=== PATIENT | female | born 1945 | race Caucasian/White ===

== ENCOUNTER → 2016-09-29 | Outpatient (CLI) | payer MEDICARE, OTHER | LOC: RAD 12:47 | PROVIDERS: ATTEND Specialist | DX: C50.919 Malignant neoplasm of unspecified site of unspecified female breast (principal) | CPT/HCPCS: 78815; A9552 ==

== ENCOUNTER → 2017-06-03 | Outpatient (CLI) | payer MEDICARE, OTHER ==
--- NOTE | 2017-06-04 08:56 | RADIOLOGY REPORT (SQ) ---
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 TECHNIQUE: Blood glucose level was verified. Above dose of FDG was injected intravenously. 2-D seg mented attenuation correction images were obtained from the base of the skull to the midthighs. Nonc ontrast CT images were obtained for attenuation correction and fusion with emission images. CT image s were performed without oral or intravenous contrast and are not sensitive for parenchymal lesions. A series of overlapping emission PET images were obtained. Images reviewed and manipulated at [facility] work station by the radiologist. Images stored on PACS. LIMITATIONS: Artifact from left humeral orthopedic instrumentation. FINDINGS: HEAD AND NECK: No areas of abnormal metabolic activity in the soft tissues of the head and neck. CHEST: No areas of abnormal metabolic activity in the chest. ABDOMEN AND PELVIS: No areas of abnormal metabolic activity in the abdomen or pelvis. Expected physi ologic activity is present in the genitourinary system and bowel. PROXIMAL LOWER EXTREMITIES: No areas of abnormal metabolic activity in the soft tissues of the lower extremities. BONES: Mixed sclerotic lytic lesions throughout the skeleton with minimal activity on PET. ADDITIONAL CT FINDINGS: No significant change. OTHER: Left-sided port with tip in the right atrium. IMPRESSION: Stable bone metastasis. No noticeable progression or soft tissue metastasis. TECHNICAL DOCUMENTATION: JOB ID: [id number] [employer]- All Rights Reserved
== END ==
LOC: RAD 14:37
PROVIDERS: ATTEND Internal Medicine Hematology & Oncology
DX: C50.411 Malignant neoplasm of upper-outer quadrant of right female breast (principal)
CPT/HCPCS: 78815; A9552

== ENCOUNTER → 2018-07-14 | Outpatient (CLI) | payer MEDICARE, OTHER ==
--- NOTE | 2018-07-15 09:51 | RADIOLOGY REPORT (SQ) ---
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 TECHNIQUE: Blood glucose level was verified. Above dose of FDG was injected intravenously. 2-D seg mented attenuation correction images were obtained from the base of the skull to the midthighs. Nonc ontrast CT images were obtained for attenuation correction and fusion with emission images. CT image s were performed without oral or intravenous contrast and are not sensitive for parenchymal lesions. A series of overlapping emission PET images were obtained. Images reviewed and manipulated at [facility] work station by the radiologist. Images stored on PACS. LIMITATIONS: None. FINDINGS: HEAD AND NECK: No areas of abnormal metabolic activity in the soft tissues of the head and neck. CHEST: No areas of abnormal metabolic activity in the chest. ABDOMEN AND PELVIS: No areas of abnormal metabolic activity in the abdomen or pelvis. Expected physi ologic activity is present in the genitourinary system and bowel. PROXIMAL LOWER EXTREMITIES: No areas of abnormal metabolic activity in the soft tissues of the lower extremities. BONES: Mixed sclerotic and lytic lesions throughout the skeleton with mildly increased metabolic acti vity up to 2.[address] FINDINGS: Stable skeletal metastasis. Basilar atelectasis. Hiatal hernia. Left-sided port tip in the right atrium. OTHER: No other significant findings. IMPRESSION: Stable bone metastasis. No soft tissue metastasis. TECHNICAL DOCUMENTATION: JOB ID: [id number]- All Rights Reserved Reading location - IP/workstation name: [email or web address]
== END ==
LOC: RAD 16:15
PROVIDERS: ATTEND Physician Assistant Medical
DX: C50.411 Malignant neoplasm of upper-outer quadrant of right female breast (principal)
CPT/HCPCS: 78815; A9552

== ENCOUNTER 2018-11-07 07:26 | Day surgery (SDC) | payer MEDICARE, OTHER ==
[~2018-11-07 07:26] MED LIST: KETOROLAC TROMETHAMINE 0.45% 4 DROP/0.4 ML DROPERETTE OS PRN; MIDAZOLAM 2 MG/2 ML INJ ONE
[2018-11-07] MEDS: TETRACAINE HCL 0.5% OPH SOLN 4 ML ONE ×3 (08:28→08:55)
[2018-11-07] MEDS: CYCLOPENTOLATE 0.2%/PHENYLEPHRINE 1% OPH SOLN 2 ML OS PRN ×3 (08:29→08:50)
[2018-11-07] MEDS: BESIFLOXACIN HCL 0.6% OPH SUSP 5 ML BOTTLE OS PRN ×4 (08:29→09:21)
[2018-11-07] MEDS: TROPICAMIDE 1% OPH SOLN 3 ML OS PRN ×3 (08:29→08:50)
[2018-11-07] MEDS: EPINEPHRINE INJ/PF 1 MG/1 ML AMPULE ONE ×2 (09:08)
[2018-11-07] MEDS: CHONDR SU A NA/HYALUR INTRAOC KIT (SURGICARE) ONE ×2 (09:08)
[2018-11-07] MEDS: LIDOCAINE 1%/PHENYLEPHRINE 1.5% 1 ML VIAL ONE ×2 (09:09)
[2018-11-07] MEDS: DORZOLAMIDE HCL 2%/TIMOLOL MALEAT 0.5% OPH SOLN 10 ML OS PRN ×2 (09:21)
--- NOTE | 2018-11-07 17:24 | [facility] DISCHARGE SUMMARY E ---
[facility] Discharge Summary NAME: STEVE SOMMERS AGE: 72Y ADMITTED: 11/07/2018 DISCHARGED: A 72-year-old patient who underwent cataract extraction with toric IOL of the left eye. DIAGNOSIS: Cataract left eye. She underwent surgery because she was having difficulty seeing medicine bottles. She should be on a regular diet. No bending at the waist and no heavy lifting. She should use her Besivance, Ilevro, and Durezol at 3:00 p.m. and 8:00 p.m. and sleep with a rigid shield. I will see her for her 1-day postop tomorrow. DICTATING PHYSICIAN: JENY TORIBIO M.D. [id number] PHY#: [id number] ID: [id number] JOB#: [id number] ACCT: [id number] cc:JENY TORIBIO M.D. >
--- NOTE | 2018-11-07 17:24 | [facility] OPERATIVE REPORT E ---
[facility] Operative Report NAME: STEVE SOMMERS AGE: 72Y DATE OF SURGERY: 11/07/2018 ROOM: PREOPERATIVE DIAGNOSIS: CATARACT LEFT EYE. POSTOPERATIVE DIAGNOSIS: CATARACT LEFT EYE. OPERATION: Cataract extraction with intraocular lens implant of the left eye with a toric multifocal lens. SURGEON: JENY TORIBIO M.D. ANESTHESIA: Topical. COMPLICATIONS: None. ESTIMATED BLOOD LOSS: None. PROCEDURE: After appropriate consent was obtained and calculations made, the patient was brought back to the operating room where the patient was prepped and draped in sterile fashion. A lid speculum was placed and attention was directed to a paracentesis where a paracentesis blade made a small incision. Viscoelastic was then used to inflate the anterior chamber. Next a 2.4 mm incision was made with the paracentesis blade. A continuous capsulorhexis forceps of approximately 5 mm was done using a cystitome and capsulorhexis forceps. Hydrodissection was carried out to make the lens freely mobile and then a divide and conquer technique was used to remove the lens with a CDE of approximately 9.09. Following this, the remaining cortical material was removed with irrigation/aspiration. After this the patient was then again marked. The marking procedure started in the preoperative holding area where 180 and 0 was marked with a marker. Now that the patient was in the operating room a 360-degree marker was used to keisha the axis at approximately 110 degrees and a toric lens of 23.5 diopters [id number] was injected into the bag after filling with viscoelastic and rotating to approximately 165 degrees. The I/A was used to remove the viscoelastic material and the toric lens appeared to be appropriately aligned. Besivance and Cosopt were instilled in the eye. A rigid sheild was placed. The patient returned to postoperative recovery in stable condition. DICTATING PHYSICIAN: JENY TORIBIO M.D. [id number] PHY#: [id number] ID: [id number] JOB#: [id number] ACCT: [id number] cc:JENY TORIBIO M.D. > MTDD
[2018-11-08] MEDS ORDERED: TETRACAINE HCL 0.5% OPH SOLN 0.6 ML DROPERETTE OS PRN (05:00)
== END 2018-11-07 10:01 | disposition home or self-care (01) ==
LOC: SC 07:26
PROVIDERS: ATTEND Internal Medicine
PROC: 08RK3JZ Replacement of Left Lens with Synthetic Substitute, Percutaneous Approach (ICD-10-PCS; principal; 2018-11-07 09:00)
DX: H25.12 Age-related nuclear cataract, left eye (principal); H25.11 Age-related nuclear cataract, right eye; H43.813 Vitreous degeneration, bilateral; H04.123 Dry eye syndrome of bilateral lacrimal glands; Z85.3 Personal history of malignant neoplasm of breast
CPT/HCPCS: 00142; 66983; V2787; J2250; J3490 ×2; J0171; J2370; 142

== ENCOUNTER 2018-12-05 09:02 | Day surgery (SDC) | payer MEDICARE, OTHER ==
[~2018-12-05 09:02] MED LIST changes: +KETOROLAC TROMETHAMINE 0.45% 4 DROP/0.4 ML DROPERETTE OD PRN; -KETOROLAC TROMETHAMINE 0.45% 4 DROP/0.4 ML DROPERETTE OS PRN
[2018-12-05] MEDS: TROPICAMIDE 1% OPH SOLN 3 ML OD PRN ×3 (10:00→10:22)
[2018-12-05] MEDS: CYCLOPENTOLATE 0.2%/PHENYLEPHRINE 1% OPH SOLN 2 ML OD PRN ×3 (10:00→10:22)
[2018-12-05] MEDS: TETRACAINE HCL 0.5% OPH SOLN 4 ML OD PRN ×4 (10:00→10:34)
[2018-12-05] MEDS: BESIFLOXACIN HCL 0.6% OPH SUSP 5 ML BOTTLE OD PRN ×4 (10:00→10:56)
[2018-12-05] MEDS: LIDOCAINE 1%/PHENYLEPHRINE 1.5% 1 ML VIAL ONE ×2 (10:47)
[2018-12-05] MEDS: EPINEPHRINE INJ/PF 1 MG/1 ML AMPULE ONE ×2 (10:47)
[2018-12-05] MEDS: CHONDR SU A NA/HYALUR INTRAOC KIT (SURGICARE) ONE ×2 (10:47)
[2018-12-05] MEDS: DORZOLAMIDE HCL 2%/TIMOLOL MALEAT 0.5% OPH SOLN 10 ML OD PRN ×2 (10:56)
--- NOTE | 2018-12-05 19:25 | [facility] OPERATIVE REPORT E ---
[facility] Operative Report NAME: STEVE SOMMERS AGE: 72Y DATE OF SURGERY: 12/05/2018 ROOM: PREOPERATIVE DIAGNOSIS: CATARACT, RIGHT EYE. POSTOPERATIVE DIAGNOSIS: CATARACT, RIGHT EYE. OPERATION: Cataract extraction with insertion of an IOL of the right eye. SURGEON: JENY TORIBIO M.D. ANESTHESIA: Topical. PROCEDURE: After obtaining appropriate consent, the patient's right eye was prepped and draped in sterile fashion as well as the surgeon in a sterile manner and cataract surgery was started. First a paracentesis blade was used to make a side-port incision. Viscoelastic was used to inflate the anterior chamber. Next a 2.4 mm incision was made with a 2.4 mm blade, clear corneal temporally. A continuous capsulorrhexis was made using a cystotome and Utrata forceps. Following this hydrodissection was carried out to make the lens fully loose and mobile and it was rotated 90 degrees. Following this, a dtfnbh-igp-brhjlxv technique was used to phacoemulsify the lens with a CDE of 16.42. The remaining cortex was removed with irrigation/aspiration. Provisc was instilled into the capsular bag to inflate the bag. A SN60WF, 22.5 diopter lens was placed. The remaining viscoelastic material was removed with irrigation/aspiration. Following this, the incision was found to be watertight. Besivance was instilled into the eye and a protective shield was placed over the eye. The patient returned to the postoperative recovery in stable condition. DICTATING PHYSICIAN: JENY TORIBIO M.D. [id number] PHY#: [id number] ID: [id number] JOB#: [id number] ACCT: [id number] cc:JENY TORIBIO M.D. >
--- NOTE | 2018-12-05 19:25 | [facility] DISCHARGE SUMMARY E ---
[facility] Discharge Summary NAME: STEVE SOMMERS AGE: 72Y ADMITTED: 12/05/2018 DISCHARGED: The patient is a 72-year-old female who underwent cataract extraction of the right eye. DIAGNOSIS: CATARACT, RIGHT EYE. She underwent surgery because she was having difficulty driving at night secondary to increased glare from headlights and sunlight. She should be on a regular diet. No bending at the waist and no heavy lifting. She should use her Besivance, Ilevro, and Durezol at 3:00 p.m. and 8:00 p.m. and sleep with a rigid shield. I will see her for her 1-day postop tomorrow. DICTATING PHYSICIAN: JENY TORIBIO M.D. [id number] PHY#: [id number] ID: [id number] JOB#: [id number] ACCT: [id number] cc:JENY TORIBIO M.D. >
== END 2018-12-05 11:42 | disposition home or self-care (01) ==
LOC: SC 09:02
PROVIDERS: ATTEND Internal Medicine
DX: H25.11 Age-related nuclear cataract, right eye (principal); Z96.1 Presence of intraocular lens; Z85.3 Personal history of malignant neoplasm of breast
CPT/HCPCS: 66984; 00142; V2632; J2250; J3490 ×2; A9270; J0171; J2370; 142

== ENCOUNTER → 2019-06-10 | Outpatient (CLI) | payer MEDICARE, OTHER ==
--- NOTE | 2019-06-11 09:01 | RADIOLOGY REPORT (SQ) ---
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 TECHNIQUE: Blood glucose level was verified. Above dose of FDG was injected intravenously. 2-D seg mented attenuation correction images were obtained from the base of the skull to the midthighs. Nonc ontrast CT images were obtained for attenuation correction and fusion with emission images. CT image s were performed without oral or intravenous contrast and are not sensitive for parenchymal lesions. A series of overlapping emission PET images were obtained. Images reviewed and manipulated at [facility] work station by the radiologist. Images stored on PACS. LIMITATIONS: None. FINDINGS: HEAD AND NECK: No areas of abnormal metabolic activity in the soft tissues of the head and neck. CHEST: There is abnormal uptake in a small nodule in the right breast. This is new from prior study. The lesion is small the SUV is approximately 3.7 suspicious for neoplasm. No abnormal parenchymal uptake. No abnormal uptake in the mediastinum or hilar regions. ABDOMEN AND PELVIS: No areas of abnormal metabolic activity in the abdomen or pelvis. Expected physi ologic activity is present in the genitourinary system and bowel. PROXIMAL LOWER EXTREMITIES: No areas of abnormal metabolic activity in the soft tissues of the lower extremities. BONES: There is increasing bony metastatic disease involving ribs as well as the lumbar spine and pel vis. Uptake in the proximal right femur has significantly increased from prior study. SUV on today' s study is over 6. ADDITIONAL CT FINDINGS: No additional significant findings on the noncontrast CT images. OTHER: No other significant findings. IMPRESSION: 1. New soft tissue mass in the right breast with an SUV of 3.7 suspicious for neoplasm. 2. Increasing bony metastatic disease. TECHNICAL DOCUMENTATION: JOB ID: [id number] [employer]- All Rights Reserved Reading location - IP/workstation name: [email or web address]
== END ==
LOC: RAD 08:36
PROVIDERS: ATTEND Internal Medicine Hematology & Oncology
DX: C50.411 Malignant neoplasm of upper-outer quadrant of right female breast (principal)
CPT/HCPCS: 78815; A9552

== ENCOUNTER 2019-10-02 11:17 | Inpatient (IN) | payer MEDICARE, OTHER ==
--- NOTE | 2019-10-02 11:55 | ER Document Report ---
ED Medical Screen (RME) - General Chief Complaint: Nausea/Vomiting/Diarrhea Stated Complaint: NAUSEA,VOMITING Time Seen by Provider: 10/02/19 11:47 Primary Care Provider: GAGAN PICKETT MD [Primary Care Provider] - Follow up as needed Notes: HPI: 73-year-old female presenting to the emergency department with nausea vomiting and diarrhea over the last 2 weeks. No abdominal pain no fever. Patient started a new chemotherapy medication orally in the same timeframe. She was referred in by her oncologist for dehydration. Patient states that they did have her on Zofran which did not work and then eventually switch her to Phenergan which was slightly better but anytime she tries to eat or drink in the last few days she still throws up. Patient also reports that she has had some exertional shortness of breath over the last 4 days, no specific chest pain with this but states that this is new. PHYSICAL EXAMINATION: Not tachycardic, lung sounds are clear to auscultation. There is a port in the left upper chest wall. No abdominal pain on palpation. Patient appears frail I have greeted and performed a rapid initial assessment of this patient. A comprehensive ED assessment and evaluation of the patient, analysis of test results and completion of medical decision making process will be conducted by an additional ED providers. TRAVEL OUTSIDE OF THE [place] IN LAST 30 DAYS: No - Related Data Allergies/Adverse Reactions: Sulfa (Sulfonamide Antibiotics) Allergy (Intermediate, Verified 11/05/18 14:52) Hives Home Medications: verzenio, phenergan, metoprolol Past Medical History - Social History Chew tobacco use (# tins/day): No Frequency of alcohol use: None Drug Abuse: None - Past Medical History Cardiac Medical History: Denies: Hx Heart Attack, Hx Hypertension Pulmonary Medical History: Denies: Hx Asthma Neurological Medical History: Denies: Hx Cerebrovascular Accident, Hx Seizures GI Medical History: Denies: Hx Hepatitis, Hx Hiatal Hernia, Hx Ulcer Infectious Medical History: Denies: Hx Hepatitis Past Surgical History: Denies: Hx Mastectomy, Hx Open Heart Surgery - RECENT ECHO, Hx Pacemaker Physical Exam - Vital signs Vitals: Temp Pulse Resp BP Pulse Ox 97.5 F 96 12 116/75 96 10/02/19 11:22 10/02/19 11:22 10/02/19 11:22 10/02/19 11:22 10/02/19 11:22 Course - Vital Signs Vital signs: Temp Pulse Resp BP Pulse Ox 97.5 F 96 12 116/75 96 10/02/19 11:34 10/02/19 11:22 10/02/19 11:22 10/02/19 11:22 10/02/19 11:22 Doctor's Discharge - Discharge Referrals: GAGAN PICKETT MD [Primary Care Provider] - Follow up as needed
--- NOTE | 2019-10-02 12:33 | ER Document Report ---
ED General - General Chief Complaint: Nausea/Vomiting/Diarrhea Stated Complaint: NAUSEA,VOMITING Time Seen by Provider: 10/02/19 11:47 Mode of Arrival: Wheelchair Information source: Patient Notes: 73-year-old female past medical history significant for breast cancer presents to the emergency room with persistent nausea, vomiting, and diarrhea for the past week. Patient states she had a PET scan in May which showed possible new lesion in her right breast states she was started on a new chemo drug 2 weeks ago symptoms started about a week ago. Also complains of generalized weakness with shortness of breath worse with exertion, denies fevers, denies abdominal pain, denies any urinary symptoms. Denies any chest pain, no ill contacts, no outside travel, no known COVID-19 exposure. TRAVEL OUTSIDE OF THE [place] IN LAST 30 DAYS: No - Related Data Allergies/Adverse Reactions: Sulfa (Sulfonamide Antibiotics) Allergy (Intermediate, Verified 11/05/18 14:52) Hives Home Medications: verzenio, phenergan, metoprolol Past Medical History - General Information source: Patient - Social History Smoking Status: Never Smoker Chew tobacco use (# tins/day): No Frequency of alcohol use: None Drug Abuse: None Family History: Reviewed & Not Pertinent Patient has homicidal ideation: No - Past Medical History Cardiac Medical History: Denies: Hx Heart Attack, Hx Hypertension Pulmonary Medical History: Denies: Hx Asthma Neurological Medical History: Denies: Hx Cerebrovascular Accident, Hx Seizures GI Medical History: Denies: Hx Hepatitis, Hx Hiatal Hernia, Hx Ulcer Infectious Medical History: Denies: Hx Hepatitis Past Surgical History: Denies: Hx Mastectomy, Hx Open Heart Surgery - RECENT ECHO, Hx Pacemaker Review of Systems - Review of Systems Constitutional: Weakness Cardiovascular: Dyspnea Respiratory: Short of breath Gastrointestinal: Diarrhea, Nausea, Vomiting Genitourinary: No symptoms reported Musculoskeletal: No symptoms reported Neurological/Psychological: No symptoms reported -: Yes All other systems reviewed and negative Physical Exam - Vital signs Vitals: Temp Pulse Resp BP Pulse Ox 97.5 F 96 12 116/75 96 10/02/19 11:22 10/02/19 11:22 10/02/19 11:22 10/02/19 11:22 10/02/19 11:22 - General General appearance: Appears well, Alert In distress: Mild - HEENT Head: Normocephalic, Atraumatic Eyes: Normal Pupils: PERRL - Respiratory Respiratory status: No respiratory distress Chest status: Nontender Breath sounds: Normal Chest palpation: Normal - Cardiovascular Rhythm: Regular Heart sounds: Normal auscultation Murmur: No - Abdominal Inspection: Normal Distension: No distension Bowel sounds: Normal Tenderness: Nontender. No: Guarding, Rebound Organomegaly: No organomegaly - Extremities General upper extremity: Normal inspection, Nontender, Normal color, Normal ROM, Normal temperature General lower extremity: Normal inspection, Nontender, Normal color, Normal ROM, Normal temperature, Normal weight bearing. No: Monika's sign - Neurological Neuro grossly intact: Yes Cognition: Normal Orientation: AAOx4 Jamaal Coma Scale Eye Opening: Spontaneous Jamaal Coma Scale Verbal: Oriented Jamaal Coma Scale Motor: Obeys Commands [place] Coma Scale Total: 15 Speech: Normal Motor strength normal: LUE, RUE, LLE, RLE Sensory: Normal - Skin Skin Temperature: Warm Skin Moisture: Dry Skin Color: Normal Course - Re-evaluation Re-evalutation: 10/02/19 13:30 Patient is resting comfortably is able to tolerate p.o. fluids. Reviewed lab and x-ray results with patient. Aware of need for additional testing. Aware of need for admission. Patient is agreeable to admission. Pending test results will call for admission. 10/02/19 15:41 Patient is resting comfortably remains pain-free. Reviewed all final test results with patient. Aware need for admission. Patient is agreeable to admission. - Vital Signs Vital signs: Temp Pulse Resp BP Pulse Ox 97.3 F 74 17 131/34 H 100 10/02/19 17:39 10/02/19 17:39 10/02/19 17:39 10/02/19 17:39 10/02/19 17:39 - Laboratory Result Diagrams: 10/02/19 12:25 10/02/19 17:13 Laboratory results interpreted by me: 10/02/19 10/02/19 10/02/19 12:25 12:25 12:25 RDW 21.3 H Plt Count 127 L Potassium 2.5 L* Carbon Dioxide 17 L BUN 63 H Creatinine 4.64 H Est GFR ( Amer) 11 L Est GFR (MDRD) Non-Af 9 L Glucose 131 H Magnesium 2.9 H NT-Pro-B Natriuret Pep 290 H Total Protein 8.7 H Lipase 1060.7 H Urine Protein 10/02/19 12:45 RDW Plt Count Potassium Carbon Dioxide BUN Creatinine Est GFR ( Amer) Est GFR (MDRD) Non-Af Glucose Magnesium NT-Pro-B Natriuret Pep Total Protein Lipase Urine Protein 100 H - Diagnostic Test Radiology reviewed: Reports reviewed - EKG Interpretation by Me Additional EKG results interpreted by me: 10/02/19 12:44 EKG was interpreted by ED physician Dr. Castrejon No acute STEMI 10/02/19 12:46 - Consults Don Day Time consulted: 15:42 Reason for consultation: 10/02/19 15:42 admission Dehydration Nausea, vomiting, Acute kidney injury Elevated troponin Consulted provider: will come to ER Discharge - Discharge Clinical Impression: Dehydration, Acute kidney injury, Elevated troponin, Elevated lipase Nausea and vomiting Qualifiers: Vomiting type: unspecified Vomiting Intractability: non-intractable Qualified Code(s): R11.2 - Nausea with vomiting, unspecified Condition: Stable Disposition: ADMITTED INPATIENT Admitting Provider: Rhonda (Hospitalist) Unit Admitted: Medical Floor
--- NOTE | 2019-10-02 12:35 | RADIOLOGY REPORT (SQ) ---
EXAM DESCRIPTION: CHEST SINGLE VIEW IMAGES COMPLETED DATE/TIME: 10/02/2019 12:23 pm REASON FOR STUDY: sob COMPARISON: None. EXAM PARAMETERS: NUMBER OF VIEWS: One view. TECHNIQUE: Single frontal radiographic view of the chest acquired. RADIATION DOSE: NA LIMITATIONS: None. FINDINGS: LUNGS AND PLEURA: Small calcified granuloma in the chest. No acute pulmonary consolidati on. No pneumothorax or pleural effusion. Mild elevation of the right hemidiaphragm. MEDIASTINUM AND HILAR STRUCTURES: No masses. Contour normal. HEART AND VASCULAR STRUCTURES: Heart normal in size. Normal vasculature. BONES: Old remote bilateral healed rib fractures. Hardware with post surgical changes left humerus. No acute findings. HARDWARE: Left Dqulga-U-Frhh catheter with the tip in the region of the right atrium. OTHER: No other significant finding. IMPRESSION: 1. NO ACUTE RADIOGRAPHIC FINDING IN THE CHEST. TECHNICAL DOCUMENTATION: JOB ID: [id number] 2010 [employer]- All Rights Reserved Reading location - IP/workstation name: [email or web address]
[2019-10-02] MEDS ORDERED: RINGERS SOLUTION,LACTATED 1,000 ML IV ONE (12:45)
[2019-10-02 12:49] LABS: ABSOLUTE BASOPHILS # (AUTO) 0.1 10^3/uL (0.0-0.2); ABSOLUTE LYMPHOCYTES (AUTO) 0.9 10^3/uL (0.5-4.7); ABSOLUTE MONOCYTES (AUTO) 0.4 10^3/uL (0.1-1.4); ABSOLUTE NEUT (AUTO) 4.2 10^3/uL (1.7-8.2); BASOPHILS % (AUTO) 1.1 % (0-2); EOSINOPHILS % (AUTO) 0.2 % (0-6); HEMATOCRIT 39.6 % (36.0-47.0); HEMOGLOBIN 14.2 g/dL (12.0-15.5); LYMPHOCYTES % (AUTO) 15.9 % (13-45); MEAN CORPUSCULAR HEMOGLOBIN 31.3 pg (27.0-33.4); MEAN CORPUSCULAR HGB CONC 35.9 g/dL (32.0-36.0); MEAN CORPUSCULAR VOLUME 87 fl (80-97); MONOCYTES % (AUTO) 6.5 % (3-13); PLATELET COUNT 127 10^3/uL (150-450); RED BLOOD COUNT 4.54 10^6/uL (3.72-5.28); RED CELL DISTRIBUTION WIDTH 21.3 % (11.5-14.0); SEGMENTED NEUTROPHILS % (AUTO) 76.3 % (42-78); TOTAL CELLS COUNTED % (AUTO) 100 %; WHITE BLOOD COUNT 5.5 10^3/uL (4.0-10.5)
[2019-10-02 13:13] LABS: ALBUMIN 4.9 g/dL (3.5-5.0); ALKALINE PHOSPHATASE 56 U/L (38-126); ANION GAP 17 (5-19); ASPARTATE AMINO TRANSFERASE 22 U/L (14-36); BILIRUBIN,DIRECT 0.1 mg/dL (0.0-0.4); BILIRUBIN,TOTAL 0.7 mg/dL (0.2-1.3); BLOOD UREA NITROGEN 63 mg/dL (7-20); CALCIUM 9.8 mg/dL (8.4-10.2); CARBON DIOXIDE 17 mmol/L (22-30); CHLORIDE 104 mmol/L (98-107); GLUCOSE 131 mg/dL (75-110); TOTAL PROTEIN 8.7 g/dL (6.3-8.2)
[2019-10-02 13:15] LABS: POTASSIUM 2.5 mmol/L (3.6-5.0)
[2019-10-02 13:19] LABS: APPEARANCE,URINE CLOUDY; BILIRUBIN,URINE NEGATIVE (NEGATIVE); COLOR,URINE AMBER; GLUCOSE, URINE NEGATIVE (NEGATIVE); KETONES,URINE NEGATIVE (NEGATIVE); LEUKOCYTE ESTERASE,URINE NEGATIVE (NEGATIVE); NITRITE,URINE NEGATIVE (NEGATIVE); PROTEIN,URINE 100 mg/dL (NEGATIVE); URINE SPECIFIC GRAVITY 1.014; UROBILINOGEN,URINE NEGATIVE mg/dL (<2.0)
[2019-10-02] MEDS ORDERED: POTASSIUM CHLORIDE 20 MEQ PACKET PO ONE (13:20)
[2019-10-02] MEDS ORDERED: POTASSI CL 20 MEQ/50 ML RIDER 20 MEQ/50 ML RTUPB IV ONE (13:26)
[2019-10-02 13:30] LABS: TROPONIN I 0.056 ng/mL
--- NOTE | 2019-10-02 14:33 | RADIOLOGY REPORT (SQ) ---
EXAM DESCRIPTION: CT ABD/PELVIS NO ORAL OR IV IMAGES COMPLETED DATE/TIME: 10/02/2019 2:20 pm REASON FOR STUDY: elevated lipase COMPARISON: PET-CT 06/10/2019 TECHNIQUE: CT scan of the abdomen and pelvis performed without intravenous or oral contrast. Images reviewed with lung, soft tissue, and bone windows. Reconstructed coronal and sagittal MPR images revi ewed. All images stored on PACS. All CT scanners at this facility use dose modulation, iterative reconstruction, and/or weight based d osing when appropriate to reduce radiation dose to as low as reasonably achievable (ALARA). [facility]: Dose Right [facility]: CareDose [facility]: Dose Right [facility]: Teradose 4D [facility]: Novasentis RADIATION DOSE: CT Rad equipment meets quality standard of care and radiation dose reduction techniq ues were employed. CTDIvol: 4.8 mGy. DLP: 212 mGy-cm.mGy. LIMITATIONS: None. FINDINGS: LOWER CHEST: Large hiatal hernia. NON-CONTRASTED LIVER, SPLEEN, ADRENALS: Evaluation limited by lack of IV contrast. No identified sign ificant masses. PANCREAS: No masses. No peripancreatic inflammatory changes. GALLBLADDER: No identified stones by CT criteria. No inflammatory changes to suggest cholecystitis. RIGHT KIDNEY AND URETER: No suspicious masses. Assessment limited by lack of IV contrast. No signif icant calcifications. No hydronephrosis or hydroureter. LEFT KIDNEY AND URETER: No suspicious masses. Assessment limited by lack of IV contrast. No signifi cant calcifications. No hydronephrosis or hydroureter. AORTA AND RETROPERITONEUM: No aneurysm. No retroperitoneal masses or adenopathy. BOWEL AND PERITONEAL CAVITY: No obvious masses or inflammatory changes. No free fluid. APPENDIX: Normal. PELVIS, BLADDER, AND ABDOMINAL WALL:No abnormal masses. No free fluid. Bladder normal. BONES: Known lytic metastatic lesions. OTHER: No other significant finding. IMPRESSION: Bone metastasis. No acute findings. COMMENT: Quality ID # [id number]: Final reports with documentation of one or more dose reduction techniques (e.g., Automated exposure control, adjustment of the mA and/or kV according to patient size, use of iterative reconstruction technique) TECHNICAL DOCUMENTATION: JOB ID: [id number] 2010 [employer]- All Rights Reserved Reading location - IP/workstation name: [email or web address]
[2019-10-02] MEDS ORDERED: PROMETHAZINE HCL INJ 25 MG/1 ML VIAL IV ONE (14:35)
[2019-10-02] MEDS ORDERED: PROMETHAZINE HCL INJ 25 MG/1 ML VIAL IV PRN (16:02)
[2019-10-02] MEDS ORDERED: TEMAZEPAM 7.5 MG CAPSULE PO PRN (16:02)
[2019-10-02] MEDS ORDERED: ACETAMINOPHEN 650 MG SUPP.RECT PR PRN (16:02)
--- NOTE | 2019-10-02 16:23 | PDOC H&P ---
History of Present Illness Admission Date/PCP: GAGAN PICKETT MD History of Present Illness: STEVE SOMMERS is a 73 year old female seen in the emergency room for persistent nausea vomiting diarrhea.. History patient just recently started chemotherapy a few weeks ago and now for over a week she has had vomiting 4 or 5 times per day as well as diarrhea 4 or 5 times per day. Patient came into the emergency room today because she was feeling so weak from the persistent vomiting and diarrhea. He was going to receive fluids in the ER and then go home however her BUN was elevated to 63 and creatinine 4.64 so it was felt like the patient needed to stay in for further IV fluids. Patient is complaining of being hungry and she will be started on a full liquid diet and treated with IV fluids and antiemetics. Patient's lipase is also elevated but she has no clinical evidence of pancreatitis and I think this is related to her dehydration and acute kidney injury. Patient also has a slightly elevated troponin and she has no chest pain no shortness of breath and once again this is probably related to her dehydration kidney injury. Patient's vital signs are stable Past Medical History Cardiac Medical History: Denies: Myocardial Infarction, Hypertension Pulmonary Medical History: Denies: Asthma Neurological Medical History: Denies: Seizures Malignancy Medical History: Reports: Breast Cancer GI Medical History: Denies: Hepatitis, Hiatal Hernia Hematology: Denies: Anemia, Sickle Cell Disease Past Surgical History Past Surgical History: Denies: Amputation, Mastectomy, Pacemaker Social History Smoking Status: Never Smoker Electronic Cigarette use?: No - Advance Directive Resuscitation Status: Do Not Resuscitate Family History Parental Family History Reviewed: No Children Family History Reviewed: No Sibling(s) Family History Reviewed.: No Medication/Allergy Home Medications: Besifloxacin HCl [Besivance 0.6% Oph Susp 5 ml] 1 drop OP TID 11/05/18 Difluprednate [Durezol] 1 drop OP ASDIR 11/05/18 Duloxetine HCl [Cymbalta 20 Mg Capsule.Dr] 20 mg PO DAILY 11/05/18 Ergocalciferol (Vitamin D2) [Vitamin D] 400 unit PO DAILY 11/05/18 Nepafenac [Ilevro] 1 drop OP ASDIR 11/05/18 Oxycodone HCl [Oxy-Ir 5 mg Tablet] 5 mg PO Q4HP PRN 11/05/18 Oxycodone HCl [Oxycontin] 20 mg PO ASDIR PRN 11/05/18 Pertuzumab [Perjeta 420 mg/14 ml Inj Sdv] 0 mg IV .Q21 DAYS 11/06/18 Trastuzumab [Herceptin Inj 150 mg Vial] 150 mg IV .[id number] 11/06/18 Zometa 0 mg IV .[id number] 11/06/18 Allergies/Adverse Reactions: Sulfa (Sulfonamide Antibiotics) Allergy (Intermediate, Verified 11/05/18 14:52) Hives Review of Systems Constitutional: PRESENT: as per HPI, anorexia, weakness Cardiovascular: ABSENT: chest pain, dyspnea on exertion, edema, orthropnea, palpitations Respiratory: ABSENT: cough, hemoptysis Gastrointestinal: PRESENT: diarrhea, nausea, vomiting. ABSENT: abdominal pain, constipation, hematemesis, hematochezia Neurological: ABSENT: abnormal gait, abnormal speech, confusion, dizziness, focal weakness, syncope Psychiatric: ABSENT: anxiety, depression, homidical ideation, suicidal ideation Physical Exam Vital Signs: Temp Pulse Resp BP Pulse Ox 97.5 F 96 14 127/67 H 100 10/02/19 11:34 10/02/19 11:22 10/02/19 15:01 10/02/19 15:00 10/02/19 15:01 Intake & Output 10/01/19 10/02/19 10/03/19 06:59 06:59 06:59 Intake Total 1000 Balance 1000 Weight 44.3 kg General appearance: PRESENT: no acute distress, thin Respiratory exam: PRESENT: clear to auscultation dona. ABSENT: rales, rhonchi, wheezes Cardiovascular exam: PRESENT: RRR. ABSENT: diastolic murmur, rubs, systolic murmur GI/Abdominal exam: PRESENT: soft, other - No tenderness no guarding no rebound Neurological exam: PRESENT: alert, awake, oriented to person, oriented to place, oriented to time, oriented to situation, CN II-XII grossly intact. ABSENT: motor sensory deficit Psychiatric exam: PRESENT: appropriate affect, normal mood. ABSENT: homicidal ideation, suicidal ideation Results Laboratory Results: 10/02/19 12:25 10/02/19 12:25 10/02/19 10/02/19 10/02/19 12:25 12:25 12:45 WBC 5.5 RBC 4.54 Hgb 14.2 Hct 39.6 MCV 87 MCH 31.3 MCHC 35.9 RDW 21.3 H Plt Count 127 L Seg Neutrophils % 76.3 Sodium 138.3 Potassium 2.5 L* Chloride 104 Carbon Dioxide 17 L Anion Gap 17 BUN 63 H Creatinine 4.64 H Est GFR ( Amer) 11 L Glucose 131 H Lactic Acid Calcium 9.8 Magnesium 2.9 H Total Bilirubin 0.7 AST 22 Alkaline Phosphatase 56 Total Protein 8.7 H Albumin 4.9 Lipase 1060.7 H Urine Color MELVIN Urine Appearance CLOUDY Urine pH 5.0 Ur Specific [place] 1.014 Urine Protein 100 H Urine Glucose (UA) NEGATIVE Urine Ketones NEGATIVE Urine Blood NEGATIVE Urine Nitrite NEGATIVE Ur Leukocyte Esterase NEGATIVE Urine WBC (Auto) 16 Urine RBC (Auto) 1 10/02/19 14:35 WBC RBC Hgb Hct MCV MCH MCHC RDW Plt Count Seg Neutrophils % Sodium Potassium Chloride Carbon Dioxide Anion Gap BUN Creatinine Est GFR ( Amer) Glucose Lactic Acid 1.4 Calcium Magnesium Total Bilirubin AST Alkaline Phosphatase Total Protein Albumin Lipase Urine Color Urine Appearance Urine pH Ur Specific [place] Urine Protein Urine Glucose (UA) Urine Ketones Urine Blood Urine Nitrite Ur Leukocyte Esterase Urine WBC (Auto) Urine RBC (Auto) 10/02/19 12:25 Troponin I 0.056 NT-Pro-B Natriuret Pep 290 H Impressions: Chest X-Ray 10/02/19 11:53 IMPRESSION: 1. NO ACUTE RADIOGRAPHIC FINDING IN THE CHEST. Abdomen/Pelvis CT 10/02/19 13:25 IMPRESSION: Bone metastasis. No acute findings. Assessment and Plan - Diagnosis (1) Intractable vomiting Is this a current diagnosis for this admission?: Yes (2) Persistent diarrhea Is this a current diagnosis for this admission?: Yes (3) Breast cancer Is this a current diagnosis for this admission?: Yes (4) Acute kidney injury Is this a current diagnosis for this admission?: Yes (5) Dehydration Is this a current diagnosis for this admission?: Yes (6) Elevated lipase Is this a current diagnosis for this admission?: Yes (7) Elevated troponin Is this a current diagnosis for this admission?: Yes - Plan Summary Summary: Going to trend her labs with serial lipase renal functions and troponins. I am going to give her gentle IV hydration and a full liquid diet. She states that Phenergan works the best for her and I will give her low doses as needed. Patient will be discharged home when she is feeling stronger has no vomiting and her labs are trending to indicate less dehydration Patient seems satisfied and all of her questions were answered - Time Time Spent with patient: 35 or more minutes
[2019-10-02 17:35] LABS: INTERNATIONAL RATION (INR) 1.14; PROTHROMBIN TIME 14.7 SEC (11.4-15.4)
[2019-10-02 17:42] LABS: ANION GAP 13 (5-19); BLOOD UREA NITROGEN 59 mg/dL (7-20); CARBON DIOXIDE 17 mmol/L (22-30); CHLORIDE 107 mmol/L (98-107); GLUCOSE 99 mg/dL (75-110)
[2019-10-02 17:47] LABS: POTASSIUM 2.8 mmol/L (3.6-5.0)
[2019-10-02 17:55] LABS: CREATINE KINASE MB 2.62 ng/mL (<4.55); TROPONIN I 0.064 ng/mL
[2019-10-02] MEDS: NORMAL SALINE 1000 ML 1,000 ML IV PRN (18:40)
[2019-10-02] MEDS: POTASSI CL 20 MEQ/50 ML RIDER 20 MEQ/50 ML RTUPB IV SCH ×2 (20:31→23:12)
[2019-10-02] MEDS: HEPARIN SOD (PORCINE) 5,000 UNIT/ML 1 ML VIAL SUBCUT SCH (21:08)
[2019-10-02] MEDS: FAMOTIDINE INJ/PF 20 MG/2 ML SDV IV SCH (21:14)
[2019-10-02 22:44] LABS: CREATINE KINASE MB 2.4 ng/mL (<4.55); TROPONIN I 0.061 ng/mL
--- NOTE | 2019-10-02 23:03 | EKG REPORT ---
SEVERITY:- ABNORMAL ECG - SINUS RHYTHM PROLONGED QT INTERVAL : Confirmed by: Nigel Dixon 02-Oct-2019 23:02:12
[2019-10-03] MEDS: NORMAL SALINE 1000 ML 1,000 ML IV PRN ×4 (03:22→21:20)
[2019-10-03 04:57] LABS: ABSOLUTE BASOPHILS # (AUTO) 0.1 10^3/uL (0.0-0.2); ABSOLUTE LYMPHOCYTES (AUTO) 0.8 10^3/uL (0.5-4.7); ABSOLUTE MONOCYTES (AUTO) 0.3 10^3/uL (0.1-1.4); ABSOLUTE NEUT (AUTO) 2.4 10^3/uL (1.7-8.2); BASOPHILS % (AUTO) 2.5 % (0-2); EOSINOPHILS % (AUTO) 0.7 % (0-6); HEMATOCRIT 30.8 % (36.0-47.0); LYMPHOCYTES % (AUTO) 22.6 % (13-45); MEAN CORPUSCULAR HEMOGLOBIN 31.7 pg (27.0-33.4); MEAN CORPUSCULAR HGB CONC 36.5 g/dL (32.0-36.0); MEAN CORPUSCULAR VOLUME 87 fl (80-97); MONOCYTES % (AUTO) 7.5 % (3-13); RED BLOOD COUNT 3.54 10^6/uL (3.72-5.28); RED CELL DISTRIBUTION WIDTH 20.9 % (11.5-14.0); SEGMENTED NEUTROPHILS % (AUTO) 66.7 % (42-78); TOTAL CELLS COUNTED % (AUTO) 100 %; WHITE BLOOD COUNT 3.6 10^3/uL (4.0-10.5)
[2019-10-03 05:07] LABS: ANION GAP 10 (5-19); BLOOD UREA NITROGEN 58 mg/dL (7-20); CALCIUM 8.2 mg/dL (8.4-10.2); CARBON DIOXIDE 16 mmol/L (22-30); CHLORIDE 114 mmol/L (98-107); GLUCOSE 101 mg/dL (75-110)
[2019-10-03 05:12] LABS: HEMOGLOBIN 11.2 g/dL (12.0-15.5)
[2019-10-03 05:13] LABS: PLATELET COUNT 93 10^3/uL (150-450)
[2019-10-03 05:18] LABS: CREATINE KINASE MB 2.43 ng/mL (<4.55); TROPONIN I 0.058 ng/mL
[2019-10-03] MEDS: HEPARIN SOD (PORCINE) 5,000 UNIT/ML 1 ML VIAL SUBCUT SCH ×3 (05:42→21:19)
[2019-10-03] MEDS: POTASSIUM CHLORIDE 20 MEQ/50 ML RTU IV SCH ×2 (06:11→08:53)
--- NOTE | 2019-10-03 08:01 | Progress Note ---
Provider Note Provider Note: Ms. Johansen is well known to me. SHe is a 73 year old female with metastatic breast cancer diagnosed May 2013. She has had bone only disease and most recently, was started on a new chemo pill - Verzenio. However, a few weeks after starting this, she developed severe nausea and vomiting, as well as diarrhea. Over the past 3 days, she has lost a great deal of weight, she has not been able to keep any food or fluids down, and she required hospital admission. She was found to have acute renal insufficiency and her Lipase was quite elevated. I agree with stopping the verzenio, giving IV fluids, and watching the Lipase. I would GENTLY readd oral nutrition and hopefully her GI problems will resolve within 24-48 hours. I will be available if any questions arise.
[2019-10-03] MEDS: POTASSIUM CHLORIDE 10 MEQ TABLET.ER PO SCH ×2 (08:52→11:22)
--- NOTE | 2019-10-03 09:31 | PDOC PROGRESS REPORT ---
Subjective Progress Note for:: 10/03/19 Reason For Visit: ACUTE KIDNEY INJURY SECONDARY TO DEHYDRATION, 10/03/2019 She was admitted for dehydration persistent nausea vomiting and diarrhea Physical Exam Vital Signs: Temp Pulse Resp BP Pulse Ox 97.2 F 76 14 109/53 L 100 10/03/19 01:02 10/03/19 01:02 10/03/19 01:02 10/03/19 01:02 10/03/19 01:02 Intake & Output 10/02/19 10/03/19 10/04/19 06:59 06:59 06:59 Intake Total 2270 50 Balance 2270 50 Weight 46.5 kg General appearance: PRESENT: no acute distress Respiratory exam: PRESENT: clear to auscultation dona. ABSENT: rales, rhonchi, wheezes Cardiovascular exam: PRESENT: RRR. ABSENT: diastolic murmur, rubs, systolic murmur Neurological exam: PRESENT: alert, awake, oriented to person, oriented to place, oriented to time, oriented to situation, CN II-XII grossly intact. ABSENT: motor sensory deficit Psychiatric exam: PRESENT: appropriate affect, normal mood, other - Good spirits. ABSENT: homicidal ideation, suicidal ideation Results Laboratory Results: 10/03/19 04:20 10/03/19 04:20 10/02/19 10/02/19 10/02/19 12:25 12:25 12:45 WBC 5.5 RBC 4.54 Hgb 14.2 Hct 39.6 MCV 87 MCH 31.3 MCHC 35.9 RDW 21.3 H Plt Count 127 L Seg Neutrophils % 76.3 Sodium 138.3 Potassium 2.5 L* Chloride 104 Carbon Dioxide 17 L Anion Gap 17 BUN 63 H Creatinine 4.64 H Est GFR ( Amer) 11 L Glucose 131 H Lactic Acid Calcium 9.8 Magnesium 2.9 H Total Bilirubin 0.7 AST 22 Alkaline Phosphatase 56 Total Protein 8.7 H Albumin 4.9 Lipase 1060.7 H TSH Urine Color MELVIN Urine Appearance CLOUDY Urine pH 5.0 Ur Specific [place] 1.014 Urine Protein 100 H Urine Glucose (UA) NEGATIVE Urine Ketones NEGATIVE Urine Blood NEGATIVE Urine Nitrite NEGATIVE Ur Leukocyte Esterase NEGATIVE Urine WBC (Auto) 16 Urine RBC (Auto) 1 10/02/19 10/02/19 10/02/19 14:35 17:13 17:13 WBC RBC Hgb Hct MCV MCH MCHC RDW Plt Count Seg Neutrophils % Sodium 137.3 Potassium 2.8 L* Chloride 107 Carbon Dioxide 17 L Anion Gap 13 BUN 59 H Creatinine 4.18 H Est GFR ( Amer) 13 L Glucose 99 Lactic Acid 1.4 Calcium 9.0 Magnesium Total Bilirubin AST Alkaline Phosphatase Total Protein Albumin Lipase TSH 1.75 Urine Color Urine Appearance Urine pH Ur Specific [place] Urine Protein Urine Glucose (UA) Urine Ketones Urine Blood Urine Nitrite Ur Leukocyte Esterase Urine WBC (Auto) Urine RBC (Auto) 10/03/19 10/03/19 04:20 04:20 WBC 3.6 L RBC 3.54 L Hgb 11.2 L D Hct 30.8 L MCV 87 MCH 31.7 MCHC 36.5 H RDW 20.9 H Plt Count 93 L Seg Neutrophils % 66.7 Sodium 139.7 Potassium 3.0 L* Chloride 114 H Carbon Dioxide 16 L Anion Gap 10 BUN 58 H Creatinine 3.86 H Est GFR ( Amer) 14 L Glucose 101 Lactic Acid Calcium 8.2 L Magnesium 2.5 H Total Bilirubin AST Alkaline Phosphatase Total Protein Albumin Lipase 1367.2 H TSH Urine Color Urine Appearance Urine pH Ur Specific [place] Urine Protein Urine Glucose (UA) Urine Ketones Urine Blood Urine Nitrite Ur Leukocyte Esterase Urine WBC (Auto) Urine RBC (Auto) 10/02/19 10/02/19 10/02/19 12:25 17:13 22:09 CK-MB (CK-2) 2.62 2.40 Troponin I 0.056 0.064 0.061 NT-Pro-B Natriuret Pep 290 H 10/03/19 04:20 CK-MB (CK-2) 2.43 Troponin I 0.058 NT-Pro-B Natriuret Pep Impressions: Chest X-Ray 10/02/19 11:53 IMPRESSION: 1. NO ACUTE RADIOGRAPHIC FINDING IN THE CHEST. Abdomen/Pelvis CT 10/02/19 13:25 IMPRESSION: Bone metastasis. No acute findings. Assessment and Plan - Diagnosis (1) Intractable vomiting Is this a current diagnosis for this admission?: Yes (2) Persistent diarrhea Is this a current diagnosis for this admission?: Yes (3) Breast cancer Is this a current diagnosis for this admission?: Yes (4) Acute kidney injury Is this a current diagnosis for this admission?: Yes (5) Dehydration Is this a current diagnosis for this admission?: Yes (6) Elevated lipase Is this a current diagnosis for this admission?: Yes (7) Elevated troponin Is this a current diagnosis for this admission?: Yes - Plan Summary Summary: Going to trend her labs with serial lipase renal functions and troponins. I am going to give her gentle IV hydration and a full liquid diet. She states that Phenergan works the best for her and I will give her low doses as needed. Patient will be discharged home when she is feeling stronger has no vomiting and her labs are trending to indicate less dehydration Patient seems satisfied and all of her questions were answered 10/03/2019 Patient is feeling much better this morning she is sitting up eating breakfast which is a full liquid diet, temperature 97.2 pulse 76 blood pressure 109/53 and oxygen saturation 100% on room air White count still normal today 3.6 potassium up slightly to 3.0. I will give her 2 more K riders this morning Lipase is gone up slightly from [id number], however patient has no abdominal pain. Magnesium is up slightly at 2.5 IV fluids will saline at 125 an hour. Creatinine on admission 4.64 and dropped to 4.18 today it is 3.86 Troponins are not indicative of cardiac ischemia And is to keep her here through most of the day let her have breakfast and lunch continue IV fluids give her K riders for her hypokalemia and she feels good this afternoon and has had no vomiting and no diarrhea will discharge late this evening or possibly keep 1 more night I do not want to discharge her home to early, however she has had no vomiting or diarrhea since she has been in the hospital - Time Time Spent with patient: 25-34 minutes
[2019-10-03] MEDS: FAMOTIDINE INJ/PF 20 MG/2 ML SDV IV SCH ×2 (10:44→21:20)
[2019-10-03] MEDS: POTASSI CL 20 MEQ/50 ML RIDER 20 MEQ/50 ML RTUPB IV SCH ×2 (11:21→13:55)
[2019-10-03 14:46] LABS: APPEARANCE,URINE SLIGHTLY-CLOUDY; BILIRUBIN,URINE NEGATIVE (NEGATIVE); COLOR,URINE YELLOW; GLUCOSE, URINE NEGATIVE (NEGATIVE); KETONES,URINE NEGATIVE (NEGATIVE); LEUKOCYTE ESTERASE,URINE SMALL (NEGATIVE); NITRITE,URINE POSITIVE (NEGATIVE); PROTEIN,URINE NEGATIVE (NEGATIVE); URINE SPECIFIC GRAVITY 1.014; UROBILINOGEN,URINE NEGATIVE mg/dL (<2.0)
[2019-10-03] MEDS: POTASSIUM CHLORIDE 20 MEQ PACKET PO SCH (16:35)
[2019-10-03] MEDS: GENTAMICIN SULFATE 0.3% OPH SOLN 5 ML OS SCH ×2 (18:49→21:21)
[2019-10-04] MEDS: GENTAMICIN SULFATE 0.3% OPH SOLN 5 ML OS SCH ×3 (02:38→08:59)
[2019-10-04] MEDS: HEPARIN SOD (PORCINE) 5,000 UNIT/ML 1 ML VIAL SUBCUT SCH (05:12)
[2019-10-04] MEDS: NORMAL SALINE 1000 ML 1,000 ML IV PRN (05:12)
[2019-10-04 05:58] LABS: ABSOLUTE BASOPHILS # (AUTO) 0.1 10^3/uL (0.0-0.2); ABSOLUTE LYMPHOCYTES (AUTO) 0.8 10^3/uL (0.5-4.7); ABSOLUTE MONOCYTES (AUTO) 0.3 10^3/uL (0.1-1.4); ABSOLUTE NEUT (AUTO) 2.4 10^3/uL (1.7-8.2); BASOPHILS % (AUTO) 1.9 % (0-2); EOSINOPHILS % (AUTO) 1.1 % (0-6); HEMATOCRIT 25.3 % (36.0-47.0); LYMPHOCYTES % (AUTO) 22.7 % (13-45); MEAN CORPUSCULAR HEMOGLOBIN 31.4 pg (27.0-33.4); MEAN CORPUSCULAR HGB CONC 35.5 g/dL (32.0-36.0); MEAN CORPUSCULAR VOLUME 88 fl (80-97); MONOCYTES % (AUTO) 7.1 % (3-13); RED BLOOD COUNT 2.86 10^6/uL (3.72-5.28); RED CELL DISTRIBUTION WIDTH 20.9 % (11.5-14.0); SEGMENTED NEUTROPHILS % (AUTO) 67.2 % (42-78); TOTAL CELLS COUNTED % (AUTO) 100 %; WHITE BLOOD COUNT 3.6 10^3/uL (4.0-10.5)
[2019-10-04 06:17] LABS: ALBUMIN 2.8 g/dL (3.5-5.0); ALKALINE PHOSPHATASE 32 U/L (38-126); ASPARTATE AMINO TRANSFERASE 22 U/L (14-36); BILIRUBIN,TOTAL 0.2 mg/dL (0.2-1.3); BLOOD UREA NITROGEN 40 mg/dL (7-20); CALCIUM 8.1 mg/dL (8.4-10.2); CARBON DIOXIDE 14 mmol/L (22-30); GLUCOSE 93 mg/dL (75-110); POTASSIUM 3.9 mmol/L (3.6-5.0); TOTAL PROTEIN 5.7 g/dL (6.3-8.2)
[2019-10-04 06:20] LABS: PLATELET COUNT 84 10^3/uL (150-450)
[2019-10-04 06:22] LABS: CHLORIDE 122 mmol/L (98-107)
[2019-10-04 06:23] LABS: ANION GAP 4 (5-19)
[2019-10-04 08:17] VITALS: BP 133/61
[2019-10-04] MEDS: POTASSIUM CHLORIDE 20 MEQ PACKET PO SCH ×2 (08:54→11:01)
[2019-10-04] MEDS: FAMOTIDINE INJ/PF 20 MG/2 ML SDV IV SCH (08:59)
--- NOTE | 2019-10-04 10:12 | Progress Note ---
Provider Note Provider Note: I spoke with patient this morning. She states that she has been drinking lots of fluids and feels strong enough to go home today. She will follow-up with me later this week and I will repeat labs to make sure Cr continues to improve. We will discuss further treatment as an outpatient. She will call me with any concerns.
--- NOTE | 2019-10-04 19:03 | PDOC DISCHARGE SUMMARY ---
Impression - Admit/DC Date/PCP Admission Date/Primary Care Provider: 10/02/19 16:28 GAGAN PICKETT MD Discharge Date: 10/04/19 - Discharge Diagnosis (1) Intractable vomiting Is this a current diagnosis for this admission?: Yes (2) Persistent diarrhea Is this a current diagnosis for this admission?: Yes (3) Breast cancer Is this a current diagnosis for this admission?: Yes (4) Acute kidney injury Is this a current diagnosis for this admission?: Yes (5) Dehydration Is this a current diagnosis for this admission?: Yes (6) Elevated lipase Is this a current diagnosis for this admission?: Yes (7) Elevated troponin Is this a current diagnosis for this admission?: Yes - Assessment Summary: Going to trend her labs with serial lipase renal functions and troponins. I am going to give her gentle IV hydration and a full liquid diet. She states that Phenergan works the best for her and I will give her low doses as needed. Patient will be discharged home when she is feeling stronger has no vomiting and her labs are trending to indicate less dehydration Patient seems satisfied and all of her questions were answered 10/03/2019 Patient is feeling much better this morning she is sitting up eating breakfast which is a full liquid diet, temperature 97.2 pulse 76 blood pressure 109/53 and oxygen saturation 100% on room air White count still normal today 3.6 potassium up slightly to 3.0. I will give her 2 more K riders this morning Lipase is gone up slightly from 1235-1163, however patient has no abdominal josse n. Magnesium is up slightly at 2.5 IV fluids will saline at 125 an hour. Creatinine on admission 4.64 and dropped to 4.18 today it is 3.86 Troponins are not indicative of cardiac ischemia And is to keep her here through most of the day let her have breakfast and lunch continue IV fluids give her K riders for her hypokalemia and she feels good this afternoon and has had no vomiting and no diarrhea will discharge late this evening or possibly keep 1 more night I do not want to discharge her home to early, however she has had no vomiting or diarrhea since she has been in the hospital 10/04/2019 Patient's labs are improving and she feels much better therefore she is to be discharged home today. Continue hydration and follow-up with Dr. Harrell next week Patient was admitted after she was found to be dehydrated with persistent vomiting and diarrhea secondary to chemotherapy. Patient was admitted for IV fluids antiemetics. Patient quickly improved. Patient has had no vomiting or diarrhea in 48 hours White blood cell count today is 3.6 BUN is gone down to 40 creatinine 2.34 which is a significant improvement Potassium is up to 3.9 sodium is stable at 139 Diagnosis 1 breast cancer 2 acute kidney injury 3 dehydration 4 intractable vomiting diarrhea 5 elevated lipase troponin hypokalemia 7 bacterial conjunctivitis - Additional Information Resuscitation Status: Do Not Resuscitate Discharge Diet: As Tolerated, Other (Comments) Discharge Activity: Balance Activity w/Rest, Energy Conservation, Slowly Increase Activity, Supervised Activity, Weigh Daily Referrals: GAGAN PICKETT MD [Primary Care Provider] - Follow up as needed Prescriptions: Gentamicin Sulfate [Garamycin 0.3% Oph Soln 5 ml] 2 drop OS Q6HP PRN 5 Days #1 bottle PRN Reason: Promethazine HCl [Phenergan 25 mg Supp.rect] 1 supp MA Q6H #12 supp.rect Potassium Chloride 20 meq PO DAILY 14 Days #14 tab.er.prt Home Medications: Anastrozole [Arimidex 1 mg Tablet] 1 mg PO DAILY 10/02/19 Cholecalciferol (Vitamin D3) [Vitamin D3 1000 Unit Tablet] 5,000 unit PO DAILY 10/02/19 Duloxetine HCl [Cymbalta 20 mg Capsule.dr] 20 mg PO DAILY 10/02/19 Ondansetron [Zofran Odt 4 mg Tablet] 8 mg PO Q8HP PRN 10/02/19 Oxycodone HCl [Oxycodone HCl ER] 20 mg PO Q8 10/02/19 Polyethylene Glycol 3350 [Miralax Powder 17 gm/Packet] 1 packet PO DAILY 10/02/19 Promethazine HCl [Phenergan 25 mg Tablet] 25 mg PO Q6HP PRN 10/02/19 Acetaminophen [Tylenol 650 mg Supp] 650 mg MA Q4HP PRN supp.rect 10/04/19 Gentamicin Sulfate [Garamycin 0.3% Oph Soln 5 ml] 2 drop OS Q6HP PRN 5 Days #1 bottle 10/04/19 Potassium Chloride 20 meq PO DAILY 14 Days #14 tab.er.prt 10/04/19 Promethazine HCl [Phenergan 25 mg Supp.rect] 1 supp MA Q6H #12 supp.rect 10/04/19 History of Present Illiness History of Present Illness: STEVE SOMMERS is a 73 year old female seen in the emergency room for persistent nausea vomiting diarrhea.. History patient just recently started chemotherapy a few weeks ago and now for over a week she has had vomiting 4 or 5 times per day as well as diarrhea 4 or 5 times per day. Patient came into the emergency room today because she was feeling so weak from the persistent vomiting and diarrhea. He was going to receive fluids in the ER and then go home however her BUN was elevated to 63 and creatinine 4.64 so it was felt like the patient needed to stay in for further IV fluids. Patient is complaining of being hungry and she will be started on a full liquid diet and treated with IV fluids and antiemetics. Patient's lipase is also elevated but she has no clinical evidence of pancreatitis and I think this is related to her dehydration and acute kidney injury. Patient also has a slightly elevated troponin and she has no chest pain no shortness of breath and once again this is probably related to her dehydration kidney injury. Patient's vital signs are stable Physical Exam Vital Signs: Temp Pulse Resp BP Pulse Ox 97.9 F 74 16 133/61 H 100 10/04/19 11:24 10/04/19 11:24 10/04/19 11:24 10/04/19 11:24 10/04/19 11:24 Intake & Output 10/03/19 10/04/19 10/05/19 06:59 06:59 06:59 Intake Total 2270 4283 665 Balance 2270 4283 665 Weight 46.5 kg 46.5 kg Results Laboratory Results: WBC 3.6 10^3/uL (4.0-10.5) L 10/04/19 05:10 RBC 2.86 10^6/uL (3.72-5.28) L 10/04/19 05:10 Hgb 9.0 g/dL (12.0-15.5) L D 10/04/19 05:10 Hct 25.3 % (36.0-47.0) L 10/04/19 05:10 MCV 88 fl (80-97) 10/04/19 05:10 MCH 31.4 pg (27.0-33.4) 10/04/19 05:10 MCHC 35.5 g/dL (32.0-36.0) 10/04/19 05:10 RDW 20.9 % (11.5-14.0) H 10/04/19 05:10 Plt Count 84 10^3/uL (150-450) L 10/04/19 05:10 Lymph % (Auto) 22.7 % (13-45) 10/04/19 05:10 [place] % (Auto) 7.1 % (3-13) 10/04/19 05:10 Eos % (Auto) 1.1 % (0-6) 10/04/19 05:10 Baso % (Auto) 1.9 % (0-2) 10/04/19 05:10 Absolute Neuts (auto) 2.4 10^3/uL (1.7-8.2) 10/04/19 05:10 Absolute Lymphs (auto) 0.8 10^3/uL (0.5-4.7) 10/04/19 05:10 Absolute Monos (auto) 0.3 10^3/uL (0.1-1.4) 10/04/19 05:10 Absolute Eos (auto) 0.0 10^3/uL (0.0-0.6) 10/04/19 05:10 Absolute Basos (auto) 0.1 10^3/uL (0.0-0.2) 10/04/19 05:10 Seg Neutrophils % 67.2 % (42-78) 10/04/19 05:10 PT 14.7 SEC (11.4-15.4) 10/02/19 17:13 INR 1.14 10/02/19 17:13 APTT 27.7 SEC (23.5-35.8) 10/03/19 04:20 Sodium 139.9 mmol/L (137-145) 10/04/19 05:10 Potassium 3.9 mmol/L (3.6-5.0) 10/04/19 05:10 Chloride 122 mmol/L (98-107) H 10/04/19 05:10 Carbon Dioxide 14 mmol/L (22-30) L 10/04/19 05:10 Anion Gap 4 (5-19) L 10/04/19 05:10 BUN 40 mg/dL (7-20) H 10/04/19 05:10 Creatinine 2.34 mg/dL (0.52-1.25) H 10/04/19 05:10 Est GFR ( Amer) 25 (>60) L 10/04/19 05:10 Est GFR (MDRD) Non-Af 20 (>60) L 10/04/19 05:10 Glucose 93 mg/dL (75-110) 10/04/19 05:10 Lactic Acid 1.4 mmol/L (0.7-2.1) 10/02/19 14:35 Calcium 8.1 mg/dL (8.4-10.2) L 10/04/19 05:10 Magnesium 2.5 mg/dL (1.6-2.3) H 10/03/19 04:20 Total Bilirubin 0.2 mg/dL (0.2-1.3) 10/04/19 05:10 Direct Bilirubin 0.0 mg/dL (0.0-0.4) 10/04/19 05:10 Neonat Total Bilirubin Not Reportable 10/04/19 05:10 Neonat Direct Bilirubin Not Reportable 10/04/19 05:10 Neonat Indirect Bili Not Reportable 10/04/19 05:10 AST 22 U/L (14-36) 10/04/19 05:10 ALT 10 U/L (<35) 10/04/19 05:10 Alkaline Phosphatase 32 U/L (38-126) L 10/04/19 05:10 CK-MB (CK-2) 2.43 ng/mL (<4.55) 10/03/19 04:20 Troponin I 0.058 ng/mL 10/03/19 04:20 NT-Pro-B Natriuret Pep 290 pg/mL (<125) H 10/02/19 12:25 Total Protein 5.7 g/dL (6.3-8.2) L 10/04/19 05:10 Albumin 2.8 g/dL (3.5-5.0) L 10/04/19 05:10 Lipase 1367.2 U/L (23-300) H 10/03/19 04:20 TSH 1.75 uIU/mL (0.47-4.68) 10/02/19 17:13 Urine Color YELLOW 10/03/19 14:03 Urine Appearance SLIGHTLY-CLOUDY 10/03/19 14:03 Urine pH 5.0 (5.0-9.0) 10/03/19 14:03 Ur Specific [place] 1.014 10/03/19 14:03 Urine Protein NEGATIVE mg/dL (NEGATIVE) 10/03/19 14:03 Urine Glucose (UA) NEGATIVE mg/dL (NEGATIVE) 10/03/19 14:03 Urine Ketones NEGATIVE mg/dL (NEGATIVE) 10/03/19 14:03 Urine Blood SMALL (NEGATIVE) H 10/03/19 14:03 Urine Nitrite POSITIVE (NEGATIVE) H 10/03/19 14:03 Urine Bilirubin NEGATIVE (NEGATIVE) 10/03/19 14:03 Urine Urobilinogen NEGATIVE mg/dL (<2.0) 10/03/19 14:03 Ur Leukocyte Esterase SMALL (NEGATIVE) H 10/03/19 14:03 Urine WBC (Auto) 17 /HPF 10/03/19 14:03 Urine RBC (Auto) 1 /HPF 10/03/19 14:03 U Hyaline Cast (Auto) 84 /LPF 10/02/19 12:45 Urine Bacteria (Auto) 3+ /HPF 10/03/19 14:03 Urine WBC Clumps MOD /HPF 10/02/19 12:45 Squamous Epi Cells Auto <1 /HPF 10/03/19 14:03 WBC Casts (Auto) 3 /LPF 10/03/19 14:03 Urine Mucus (Auto) RARE /LPF 10/03/19 14:03 Urine Ascorbic Acid NEGATIVE (NEGATIVE) 10/03/19 14:03 10/02/19 10/02/19 10/02/19 12:25 17:13 22:09 CK-MB (CK-2) 2.62 2.40 Troponin I 0.056 0.064 0.061 NT-Pro-B Natriuret Pep 290 H 10/03/19 04:20 CK-MB (CK-2) 2.43 Troponin I 0.058 NT-Pro-B Natriuret Pep Impressions: Chest X-Ray 10/02/19 11:53 IMPRESSION: 1. NO ACUTE RADIOGRAPHIC FINDING IN THE CHEST. Abdomen/Pelvis CT 10/02/19 13:25 IMPRESSION: Bone metastasis. No acute findings. Stroke Is this a Stroke Patient?: No Acute Heart Failure - Is this a Heart Failure Patient?: No
== END 2019-10-04 12:07 | disposition home or self-care (01) | DRG 394 ==
LOC: ER 11:17 → EH 16:28 → OBSVTOIN 16:28 → 4N 17:35
PROVIDERS: ADMIT Internal Medicine; ATTEND Physician Assistant
DX: K52.1 Toxic gastroenteritis and colitis (principal); N17.9 Acute kidney failure, unspecified; E86.0 Dehydration; C50.919 Malignant neoplasm of unspecified site of unspecified female breast; E87.6 Hypokalemia; H10.89 Other conjunctivitis; T45.1X5A Adverse effect of antineoplastic and immunosuppressive drugs, initial encounter; Z66 Do not resuscitate; Z88.2 Allergy status to sulfonamides; Z79.899 Other long term (current) drug therapy
CPT/HCPCS: 36415; 71045; 74176; 80048; 80053; 81001; 82553; 83605; 83690; 83735; 83880; 84443; 84484; 85025; 85610; 85730; 93005; 93010; 96361; 96365; 96366; 96375; 99285; G0378; J1642; J2550; J3480; J3490; J7030; J7120; S0028

== ENCOUNTER → 2019-10-21 | Outpatient (CLI) | payer MEDICARE, OTHER ==
--- NOTE | 2019-10-21 16:54 | RADIOLOGY REPORT (SQ) ---
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 TECHNIQUE: Blood glucose level was verified. Above dose of FDG was injected intravenously. 2-D seg mented attenuation correction images were obtained from the base of the skull to the midthighs. Nonc ontrast CT images were obtained for attenuation correction and fusion with emission images. CT image s were performed without oral or intravenous contrast and are not sensitive for parenchymal lesions. A series of overlapping emission PET images were obtained. Images reviewed and manipulated at [facility] work station by the radiologist. Images stored on PACS. LIMITATIONS: None. FINDINGS: HEAD AND NECK: No areas of abnormal metabolic activity in the soft tissues of the head and neck. CHEST: Previously seen focus of asymmetric activity within the right breast is no longer FDG avid (ma x SUV 1.1, previously 3.7). No new areas of uptake within the chest. Scattered coronary atheroscler osis. Left-sided chest port with catheter tip at right atrium. Moderate hiatal hernia. Bilateral l ower lobe ground-glass attenuation, possibly hypoventilatory change. No focal uptake.) ABDOMEN AND PELVIS: No areas of abnormal metabolic activity in the abdomen or pelvis. Expected physi ologic activity is present in the genitourinary system and bowel. PROXIMAL LOWER EXTREMITIES: No areas of abnormal metabolic activity in the soft tissues of the lower extremities. BONES: Multifocal osseous metastatic disease with persistent increased uptake involving the right pr oximal femur (max SUV 4.4, previously 6). Additional increased uptake within the L3 vertebral body ( max SUV 4.8). ADDITIONAL CT FINDINGS: As above. OTHER: Background hepatic activity max SUV 2.6. IMPRESSION: 1. Previously described focus of asymmetric activity within the right breast is no long er FDG avid (max SUV 1.1, previously 3.7). 2. No new areas of pathologic uptake within the soft tissues. 3. Multifocal osseous metastatic disease with persistent increased uptake within the right proximal femur and L3 vertebral bodies as above. TECHNICAL DOCUMENTATION: JOB ID: [id number] 2010 [employer]- All Rights Reserved Reading location - IP/workstation name: [email or web address]
== END ==
LOC: RAD 12:33
PROVIDERS: ATTEND Internal Medicine Hematology & Oncology
DX: C50.411 Malignant neoplasm of upper-outer quadrant of right female breast (principal); C79.51 Secondary malignant neoplasm of bone
CPT/HCPCS: 78815; A9552

== ENCOUNTER → 2019-10-27 | Outpatient (CLI) | payer MEDICARE, OTHER ==
--- NOTE | 2019-10-28 08:40 | RADIOLOGY REPORT (SQ) ---
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 TECHNIQUE: Multiplanar imaging includes noncontrasted T1, T2, FLAIR, and Diffusion with ADC map seq uences. Contrast enhanced T1 images. Images stored on PACS. CONTRAST TYPE AND DOSE: 10 mL Prohance. RENAL FUNCTION: Not indicated. ACR Type II contrast agent associated with few, if any, unconfounded cases of NSF LIMITATIONS: None. FINDINGS: ANATOMY: No anomalies. Normal vascular flow voids. Pituitary fossa normal. CSF SPACES: Normal size and contour. No hemorrhage. CEREBRUM: A few high-signal intensity lesions scattered throughout the white matter on FLAIR imaging with distribution suggesting chronic microvascular ischemic change. Sulci and gyri normal in size and contour. No evidence of hemorrhage, mass or extraaxial fluid collection. No enhancing lesions. POSTERIOR FOSSA: No signal alteration. No hemorrhage. No edema, masses or mass effect. Internal audit ory canals, cerebello-pontine angles, mastoids normal. DIFFUSION: Negative for acute or subacute infarction. ORBITS: No masses. Globes normal. PARANASAL SINUSES: No fluid levels. Mucosa normal. OTHER: No other significant finding. IMPRESSION: No evidence of metastatic disease. EVIDENCE OF ACUTE STROKE: NO. TECHNICAL DOCUMENTATION: JOB ID: [id number] 2010 [employer]- All Rights Reserved Reading location - IP/workstation name: [email or web address]
== END ==
LOC: RAD 15:36
PROVIDERS: ATTEND Internal Medicine Hematology & Oncology
DX: C50.411 Malignant neoplasm of upper-outer quadrant of right female breast (principal); R41.82 Altered mental status, unspecified
CPT/HCPCS: 70553; A9576

== ENCOUNTER → 2020-05-25 | Outpatient (CLI) | payer MEDICARE, OTHER ==
--- NOTE | 2020-05-27 15:39 | RADIOLOGY REPORT (SQ) ---
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 Stage IV breast cancer currently receiving chemoth erapy. Prior radiation ending December 2019. Restaging. Patient receiving immunotherapy since . Erythropoietin beginning February 2020 will not chronic anemia. COMPARISON: None. RADIONUCLIDE AND DOSE: 10.47 mCi F18 FDG The route of agent administration: Intravenous FASTING BLOOD SUGAR: 88 mg/dl CONTRAST TYPE AND DOSE: No CT contrast given. TECHNIQUE: Blood glucose level was verified. Above dose of FDG was injected intravenously. 2-D seg mented attenuation correction images were obtained from the base of the skull to the midthighs. Nonc ontrast CT images were obtained for attenuation correction and fusion with emission images. CT image s were performed without oral or intravenous contrast and are not sensitive for parenchymal lesions. A series of overlapping emission PET images were obtained. [facility] by the radiologist. Images stored on PACS. LIMITATIONS: None. FINDINGS: HEAD AND NECK: No areas of abnormal metabolic activity in the soft tissues of the head and neck. CHEST: No areas of abnormal metabolic activity in the chest. ABDOMEN AND PELVIS: No areas of abnormal metabolic activity in the abdomen or pelvis. Expected physi ologic activity is present in the genitourinary system and bowel. Background hepatic activity SUV 2. 6 PROXIMAL LOWER EXTREMITIES: No areas of abnormal metabolic activity in the soft tissues of the lower extremities. BONES: There is diffuse mild hypermetabolic activity throughout the axial and appendicular skeleton w ith areas of photopenia involving the right proximal femur and left humerus likely secondary to prior radiation therapy in these regions. This is most consistent with reactive bone marrow changes. Dif fuse sclerotic bone metastases appear stable. Posttraumatic changes in the pelvis are unchanged. ADDITIONAL CT FINDINGS: No additional significant findings on the noncontrast CT images. OTHER: No other significant findings. IMPRESSION: 1. Diffuse increased uptake throughout the appendicular and axial skeleton, most consistent with bone marrow reactivation in the setting of bone stimulating medication. Diffuse sclerotic bone metastase s appear stable without activity suggesting treated metastasis. 2. No evidence of new metastatic disease. TECHNICAL DOCUMENTATION: JOB ID: [id number] 2011 [employer]- All Rights Reserved Reading location - IP/workstation name: [email or web address]
== END ==
LOC: RAD 08:00
PROVIDERS: ATTEND Nurse Practitioner Family
DX: C50.411 Malignant neoplasm of upper-outer quadrant of right female breast (principal); C79.51 Secondary malignant neoplasm of bone
CPT/HCPCS: 78815; A9552